=== PATIENT | male | born 1960 | race Caucasian/White ===

== ENCOUNTER 2023-12-18 09:02 | Emergency (ER) | payer OTHER, SELFPAY ==
[2023-12-18 09:15] VITALS: BP 172/88; PULSE 88; RESP 20; TEMP 37.3; O2SAT 96
--- NOTE | 2023-12-18 09:47 | ED.GENADULT ---
HPI - General Adult General Chief complaint: Extremity Injury, Upper Stated complaint: Right elbow inflation Time Seen by Provider: 12/18/23 09:47 Source: patient Mode of arrival: ambulatory Limitations: no limitations History of Present Illness HPI narrative: 63-year-old male presented for complaint of right elbow swelling over the past few days. States he had 2 injuries over the past few weeks; first he was 'roughing around' with coworkers when the elbow was pressed against a counter. About 3 days ago he tripped and landed on the right arm and says he re-injured it. States the swelling is extending to the forearm, but the warmth that was present a few days ago is better. Denies pain to the elbow, decreased range of motion, bruising or deformity. Denies numbness, tingling or weakness of the right arm. Taking ibuprofen. Related Data Home Medications Medication Instructions Recorded Confirmed losartan 100 mg tablet 100 mg PO DAILY 12/18/23 12/18/23 meloxicam 15 mg tablet 15 mg PO DAILY 12/18/23 12/18/23 omeprazole 20 mg capsule,delayed 20 mg PO DAILY 12/18/23 12/18/23 release Allergies Allergy/AdvReac Type Severity Reaction Status Date / Time bacitracin Allergy Rash Verified 12/18/23 09:30 benzalkonium chloride Allergy Unknown Verified 12/18/23 09:30 gramicidin D Allergy Unknown Verified 12/18/23 09:30 hydrocortisone Allergy Rash Verified 12/18/23 09:30 polymyxin B Allergy Rash Verified 12/18/23 09:30 BACITRACIN ZINC Allergy Rash Uncoded 12/18/23 09:30 NEOMYCIN SULFATE Allergy Rash Uncoded 12/18/23 09:30 POLYMYXIN B SULFATE Allergy Rash Uncoded 12/18/23 09:30 Review of Systems Review of Systems: CONSTITUTIONAL: Denies body aches, fever, chills CARDIOVASCULAR: Denies chest pain, palpitations, or edema. RESPIRATORY: Denies cough or dyspnea. GASTROINTESTINAL: Denies abdominal pain, nausea, vomiting, or diarrhea. SKIN: Denies rash, itching, or wounds. MUSCULOSKELETAL: Reports right elbow swelling NEUROLOGIC: Denies headache, numbness, tingling, or weakness. All systems reviewed & are unremarkable except as noted in HPI and below PMFSH Comments At time of signature, I have reviewed and agree with nursing past medical, surgical, social and family history unless otherwise noted. Please see nursing chart for further information. There is no relevant family history pertinent to the presenting complaint Exam Narrative: GENERAL: Well-appearing CHEST: Speaks in full sentences. No respiratory distress. HEART: Regular rate and rhythm. Normal and equal peripheral pulses. EXTREMITIES: Right arm has decreased ROM at baseline at the shoulder. Right elbow with moderate swelling extending to the mid forearm c/w bursitis. Nontender olecranon. Elbow ROM is limited with full extension but at pt's baseline, without pain. No erythema or warmth. Hand has normal strength and sensation, No ecchymosis, No point tenderness. No open wounds, or obvious deformity; alignment normal, pulse palpable and equal bilaterally, skin warm, dry, pink. Capillary refill less than 3 seconds. SKIN: Warm, dry, no rash. NEURO: Alert and oriented x3. PSYCH: Normal mood and affect Course Course Emergency Course: Patient is aware of diagnosis, understands and agrees to treatment plan. Anticipatory guidance given. Patient agrees to follow-up as directed and is aware of reasons to seek care at the emergency department. Portions of this record may have been created with voice recognition software Level of Care: Express Care Visit Vital Signs Vital signs: Vital Signs Temperature 99.1 F 12/18/23 09:15 Pulse Rate 88 12/18/23 09:15 Respiratory Rate 12/18/23 09:15 Blood Pressure 172/88 H 12/18/23 09:15 Pulse Oximetry 96 12/18/23 09:15 Oxygen Delivery Room Air 12/18/23 09:15 Temperature 99.1 F 12/18/23 09:15 Pulse Rate 88 12/18/23 09:15 Respiratory Rate 12/18/23 09:15 Blood Pressure 172/88 H
== END 2023-12-18 10:00 | disposition home or self-care (01) ==
PROVIDERS: Emergency Provider Nurse Practitioner Family
DX: M70.31 Other bursitis of elbow, right elbow (principal); I10 Essential (primary) hypertension; K21.9 Gastro-esophageal reflux disease without esophagitis; M19.90 Unspecified osteoarthritis, unspecified site
CPT/HCPCS: 99203; G0463

== ENCOUNTER 2024-09-12 08:35 | Emergency (ER) | payer OTHER, SELFPAY ==
--- NOTE | 2024-09-12 08:40 | ED.URI ---
HPI - URI/Sore Throat General Chief Complaint: Upper Respiratory Infection Stated Complaint: Cough Time Seen by Provider: 09/12/24 08:41 Source: patient and RN notes reviewed Mode of arrival: ambulatory Limitations: no limitations History of Present Illness HPI Narrative: 64-year-old male presents for 4 day history of cough, runny nose, stuffy nose. He has been taking Coricidin without relief. Reports exposure to flu. He reports he has had the same cough 2 other times in the past month. He reports he had days in between episodes that he was not coughing. MD elicited complaint: cough Related Data Home Medications ?Medication ?Instructions ?Recorded ?Confirmed ?Last Taken ?Type losartan 100 mg tablet 100 mg PO DAILY 12/18/23 12/18/23 Unknown History meloxicam 15 mg tablet 15 mg PO DAILY 12/18/23 12/18/23 Unknown History omeprazole 20 mg capsule,delayed 20 mg PO DAILY 12/18/23 12/18/23 Unknown History release Allergies Allergy/AdvReac Type Severity Reaction Status Date / Time bacitracin Allergy Rash Verified 09/12/24 08:58 benzalkonium chloride Allergy Unknown Verified 09/12/24 08:58 gramicidin D Allergy Unknown Verified 09/12/24 08:58 hydrocortisone Allergy Rash Verified 09/12/24 08:58 polymyxin B Allergy Rash Verified 09/12/24 08:58 NEOMYCIN SULFATE Allergy Rash Uncoded 12/18/23 09:30 Review of Systems Review of Systems: CONSTITUTIONAL: Reports malaise, tactile fever. EYES: Denies visual changes, redness, or discharge. ENT: Reports rhinorrhea, congestion, sore throat. CARDIOVASCULAR: Denies chest pain, palpitations, or edema. RESPIRATORY: Reports cough. Denies dyspnea. GASTROINTESTINAL: Denies abdominal pain, nausea, vomiting, diarrhea SKIN: Denies rash or itching. MUSCULOSKELETAL: Denies myalgia. NEUROLOGIC: Denies headache. All systems reviewed & are unremarkable except as noted in HPI and below PMFSH Comments At time of signature, agree with nursing past medical, surgical, social and family history. There is no relevant family history pertinent to the presenting complaint Exam Narrative: GENERAL: Well-appearing, well-nourished, and in no acute distress. HEAD: Normocephalic EYES: PERRLA, conjunctivae clear ENT: Nares clear, turbinates edematous and erythematous, clear discharge. Mucous membranes moist. TM pearly kuo with dull light reflex bilaterally; no tragal tenderness. Oropharynx not erythematous without lesions. Tonsils not enlarged and without exudate, no drooling, no hoarseness, no trismus, uvula midline. NECK: Supple. No lymphadenopathy CHEST: Scattered wheeze, breath sounds equal. No rhonchi, rales, or stridor. No respiratory distress, speaks in full sentences. HEART: Regular rate and rhythm. No murmur heard. SKIN: Warm, dry, no rash. NEURO: Alert and oriented x3. PSYCH: Normal mood and affect Course Course Emergency Course: Patient is aware of diagnosis, understands and agrees to treatment plan. Anticipatory guidance given. Patient agrees to follow-up as directed and is aware of reasons to seek care at the emergency department. Portions of this record may have been created with voice recognition software Level of Care: Express Care Visit Vital Signs Vital signs: Reviewed. MDM - URI/Sore Throat MDM Narrative Medical decision making narrative: Differential diagnosis considered: Lay virus, strep pharyngitis, allergic rhinitis, upper respiratory tract infection, sinusitis, rhinosinusitis, nasopharyngitis. viral pharyngitis, otitis media, otitis externa, pneumonia, bronchitis, viral cough syndrome, viral syndrome, and influenza. Exam findings show no acute concerns or changes; patient is non-toxic appearing and is in no distress. Patient is appropriate for outpatient treatment and follow-up. Lab Data Attestation: I reviewed the patient's lab results. Critical Care Time Critical Care Time Critical Care Time: No Discharge Plan Discharge Clinical Impression: Lower respiratory tract infection Patient Disposition: Home, Self-Care Condition: Stable Instructions: Antibiotic Form, How to Use a Metered-Dose Inhaler (ED) Additional Instructions: Your COVID and flu tests are negative Recommend antihistamine such as Benadryl at night time and Zyrtec or Carmne during the day Use inhaler as needed for cough, wheezing, shortness of breath or chest tightness. Also, recommend symptomatic treatment includes: rest, fluids, and increase humidity of the air at home. Recommend Acetaminophen as directed on the bottle to reduce fever, pain, headache. Avoid smoking/second-hand smoke. Please schedule a follow-up visit with your personal physician for further evaluation and treatment within 3-5days. If your symptoms persist, change or worsen significantly before you can contact your personal physician then please, without delay, go to the emergency department for further evaluation. Patient Language: Brazilian Prescriptions: New azithromycin [Zithromax Z-Jean Carlos] 250 mg tablet See Rx Instructions .ROUTE .COMPLEX Qty: 6 0RF Rx Instructions: take 500 mg today (day 1), then 250 mg for 4 days (days 2-5) methylprednisolone [Medrol (Jean Carlos)] 4 mg tablets,dose pack See Rx Instructions .ROUTE .COMPLEX Qty: 21 0RF Rx Instructions: orally per package directions albuterol sulfate 90 mcg/actuation HFA aerosol inhaler 2 puff INHALATION QID PRN (Reason: shortness of breath or wheezing) Qty: 8.5 0RF No Action losartan 100 mg tablet 100 mg PO DAILY omeprazole 20 mg capsule,delayed release(DR/EC) 20 mg PO DAILY meloxicam 15 mg tablet 15 mg PO DAILY methylprednisolone [Medrol (Jean Carlos)] 4 mg tablets,dose pack See Rx Instructions .ROUTE .COMPLEX Qty: 21 0RF Rx Instructions: orally per package directions cephalexin 500 mg capsule 500 mg PO Q8H 5 Days Qty: 15 0RF Follow-up/Referrals: Kenyatta,Aravind Nicole MD [Primary Care Provider] - Time of Disposition: 09:13
[2024-09-12 08:42] VITALS: BP 135/80; PULSE 99; RESP 16; TEMP 35.8; O2SAT 96
[2024-09-12 09:09] LABS: EDCOVIDSCREEN Negative (Negative); EDINFLUASCREEN Negative (Negative); EDINFLUBSCREEN Negative (Negative)
== END 2024-09-12 09:15 | disposition home or self-care (01) ==
PROVIDERS: Emergency Provider Nurse Practitioner; PCP Internal Medicine
DX: J22 Unspecified acute lower respiratory infection (principal); Z20.822 Contact with and (suspected) exposure to COVID-19; I10 Essential (primary) hypertension; K21.9 Gastro-esophageal reflux disease without esophagitis; M19.90 Unspecified osteoarthritis, unspecified site
CPT/HCPCS: 87426; 87804; 99213; G0463